=== PATIENT | female | born 1990 | race Caucasian/White ===

== ENCOUNTER 2017-01-03 14:53 | Emergency (ER) | payer OTHER ==
[~2017-01-03] VITALS: Ht 157.5 cm; Wt 52.3 kg
[2017-01-03 15:05] VITALS: BP 112/76; PULSE 82; RESP 16; O2SAT 99
[2017-01-03] MEDS ORDERED: PREN-12 PO (15:08)
[2017-01-03] MEDS ORDERED: NITR100 PO (15:08)
[2017-01-03] MEDS ORDERED: CEPH-512 PO (15:08)
[2017-01-03 16:10] LABS: BASOPHILS % (AUTO) 0.3 % (0-3); EOSINOPHILS % (AUTO) 1.1 % (0-5); MONOCYTES % (AUTO) 10.3 % (4-12); Mean Corpuscular Hemoglobin 30.2 pg (27.0-35.0); Mean Corpuscular Volume 87.9 fL (81-100); NEUTROPHILS % (AUTO) 56.5 % (40-74); Platelet Count 222 bil/L (150-400)
[2017-01-03] MEDS ORDERED: 0.9% Sodium Chloride 1,000 ML IV ONE (18:20)
--- NOTE | 2017-01-03 18:39 | ED.REPORT ---
HPI-Preg Under 20 Weeks Date of Service Jan 03, 2017 ED Provider: Bernard Arriaga MD Pt is a 5 week 2 day 26 y/o female presenting to the ED c/o whitish frothy vaginal discharge and UTI-like symptoms onset 4 days ago. She c/o dysuria , urinary frequency, nausea, continuous vomiting today. She has been taking Azo 3 times a day. She has been on Keflex and Macrobid for 3 days. Macrobid was added to her regimen because her culture was questionable whether it was susceptible to Keflex or not. Pt denies abnormal vaginal bleeding or discharge, fever, chills. She has had Chlamydia at age 18 and her symptoms are somewhat similar to that time. She had unprotected sex early October with a partner who is asymptomatic. She had a stillbirth at 24 weeks and 1 other healthy . Nursing Notes Stated Complaint: UTI Chief Complaint: Female Abdominal Pain Nursing Notes Reviewed: Yes Allergies: Coded Allergies: Estrogens (Verified Allergy, Severe, blood clots, 01/03/17) Scheduled Cephalexin (Keflex) 500 Mg Capsule 500 MG PO QID Metronidazole (Metronidazole) 500 Mg Tablet 500 MG PO BID Nitrofurantoin Monohyd/M-Cryst (MacroBid) 100 Mg Capsule 100 MG PO BID Vit W-Ca,Fe,FA(<1 mg) ( Formula) 1 Each Tablet 1 EACH PO DAILY General Time Seen by Provider: 18:42 Chief Complaint Dysuria Context: : Known 1st trim Hx Obtained From: Patient Arrived By: Walk-in Onset Occurred: 4 days ago Symptom Duration: Since onset Progression Since Onset: Constant Severity: Current: No pain currently Severity: Maximum: No pain Recent Healthcare: Recent doctor visit, Previous diagnosis Similar Sx Previous: Yes Past Medical History Past Medical History Denies Past Surgical History None reported Smoking History Unknown if Ever Smoker Ambulatory Status Independent Review of Systems Constitutional: Denies: Chills, Fever Respiratory: Denies: Non-productive cough, Shortness of breath Cardiovascular: Denies: Chest pain, Dyspnea on exertion GI: Reports: Nausea, Vomiting, Denies: Abdominal pain, Diarrhea Female: Reports: Dysuria, Urinary frequency, Denies: Hematuria, Vaginal bleeding - abnl, Vaginal discharge Complete sys rev & neg: except as marked. Physical Exam Initial Vital Signs Vital Signs (First) Date Time Temp Pulse Resp B/P Pulse Ox O2 Delivery O2 Flow Rate FiO2 3/9/17 15:05 36.6 82 16 112/76 99 Room Air Initial VS: Reviewed, Vital signs normal Head / Eyes: Atraumatic, Normocephalic, PERRL ENT: Mucous membranes moist, Conjunctiva normal, No scleral icterus Neck: Supple, Full range of motion Respiratory: Breath sounds normal, Clear to auscultation, No respiratory distress Cardiovascular: Regular rate & rhythm, Heart sounds normal, Intact distal pulses Extremities: Vascular intact, Neuro intact, No swelling, No tenderness Skin: Warm, Dry, No cyanosis Neurologic: Alert, Oriented, Nonfocal Psychiatric: Mood/affect normal, Behavior normal, Normal thought content General/Constitutional: Awake, Alert, No acute distress, Cooperative, Not toxic appearing Abdomen: Atraumatic, Soft, Non-tender, No guarding, No rebound, No palpable mass Gravid uterus Female Genitourinary: Steel Engraver present (THERESA Clarke), Atraumatic, External genitalia NL, No bleeding, No cervical motion tend, Os closed Copious white-radha vaginal secretions that were thin Interpretation & Diagnostics Lab Results Interpretation Result Diagram: 01/03/17 1602 01/03/17 1602 Test 01/03/17 16:02 01/03/17 18:36 01/03/17 19:27 White Blood Count 6.1th/mm3 (3.8-10.1) Red Blood Count 3.87mil/mm3 (3.90-5.20) Hemoglobin 11.7g/dL (12.0-15.6) Hematocrit 34.0% (35.0-46.0) Mean Corpuscular Volume 87.9fL (81-100) Mean Corpuscular Hemoglobin 30.2pg (27.0-35.0) Mean Corpuscular Hemoglobin Concent 34.4% (32.0-37.0) Red Cell Distribution Width 11.8% (12.3-15.4) Platelet Count 222bil/L (150-400) Neutrophils (%) (Auto) 56.5% (40-74) Lymphocytes (%) (Auto) 31.6% (14-46) Monocytes (%) (Auto) 10.3% (4-12) Eosinophils (%) (Auto) 1.1% (0-5) Basophils (%) (Auto) 0.3% (0-3) Sodium Level 139mEq/L (134-144) Potassium Level 4.0mEq/L (3.5-5.2) Chloride Level 106mEq/L (97-108) Carbon Dioxide Level 20mmol/L (18-29) Blood Urea Nitrogen 10mg/dL (6-20) Creatinine 0.71mg/dL (0.57-1.00) Estimat Glomerular Filtration Rate 143mL/min (>59) Glucose Level 88mg/dL (60-99) Calcium Level 8.9mg/dL (8.5-10.1) Total Bilirubin 0.4mg/dL (0.0-1.2) Aspartate Amino Transf (AST/SGOT) 16U/L (0-50) Alanine Aminotransferase (ALT/SGPT) 12U/L (0-32) Alkaline Phosphatase 31U/L (25-150) Total Protein 7.1g/dL (6.4-8.4) Albumin 4.6g/dL (3.4-5.0) HCG Beta Subunit 5642mIU/mL Hold Brown Top Tube Received (Received) Urine Color [place] (YELLOW) Urine Appearance Hazy (CLEAR,HAZY) Urine pH (5.0-8.0) Urine Specific [place] 1.022 (1.003-1.035) Urine Protein mg/dL (NEG,TRACE) Urine Glucose (UA) mg/dL (NEGATIVE) Urine Ketones mg/dL (NEGATIVE) Urine Occult Blood (NEGATIVE) Urine Nitrite (NEGATIVE) Urine Bilirubin (NEGATIVE) Urine Urobilinogen mg/dL (NORMAL) Urine Leukocyte Esterase (NEGATIVE) Urine RBC 0-2/hpf (0-2) Urine WBC 0-5/hpf (0-5) Urine Epithelial Cells Few/hpf (NONE-MOD) Urine Crystals None seen (NONE SEEN) Urine Bacteria Few/hpf (NONE-FEW) Urine Hyaline Casts None/lpf (NONE) Urine Granular Casts None seen (NONE SEEN) Urine Waxy Casts None seen (NONE SEEN) Urine Red Blood Cell Casts None seen (NONE SEEN) Urine White Blood Cell Casts None seen (NONE SEEN) Urine Mucus Present (None Seen) Urine Trichomonas None seen (NONE SEEN) Urine Yeast None (NONE SEEN) Urinalysis Comment Color interference Urine Culture Reflexed Not indicated Re-Eval/Medical Decision Med Decision/Clinical Course Patient is a 26-year-old female currently approximately 5 weeks presenting to the emergency department complaining of whitish copious vaginal discharge. She has had 2 prior visits in which she was diagnosed with urinary tract infection, initially started on Keflex though later switched to Keflex and Macrobid due to culture and sensitivity. She reports that her UTI symptoms are resolving but that she continues to have copious whitish vaginal discharge. She states that at her previous visits she was not worked up for this and that pelvic examinations were not performed. Here in the emergency department she is afebrile stable vital signs and examination as above. Of note pelvic examination revealed copious whitish frothy discharge. Labs notable as below: CBC: No leukocytosis, stable HCT, unremarkable CMP: Unremarkable Beta HC Wet mount reveals clue cells, no Trichomonas GC and chlamydia pending I was not able to obtain the patient's previous urine cultures however she reports that her UTI symptoms have been resolving and that her current antibiotic regimen is based upon culture and sensitivity results. I see no indication to immediately change the patient's antibiotic regimen. Pelvic examination is clinically consistent with bacterial vaginosis and this is reaffirmed the presence of clue cells. Patient was started on a course of Flagyl. She will follow up with [employer] early next week. Follow-up and return precautions were reviewed in detail and she was discharged in stable condition. She is advised to use Benadryl as needed for nausea and take multivitamin with B6. She is tolerating PO and reports that her nausea and vomiting has been manageable. Re-Evaluation/Progress #1: Time of Eval: 19:28 Re-Evaluation/Progress Note: Confirmed previous urine cultures [facility] in [place], cultures not available, current antibiotics prescribed for sensitivity. Re-Evaluation/Progress #2: Time of Eval: 20:27 Re-Evaluation/Progress Note: Pt rechecked. Informed pt of plan for treatment. Pt understands and agrees with plan for treatment. F/U instructions and RTER warnings given. All questions addressed. Counseled Regarding: Diagnosis, Lab results, Need for follow-up, When/why to return to ED Discharge & Departure Primary Impression: UTI (urinary tract infection) Urinary tract infection type: site unspecified Hematuria presence: without hematuria Qualified Code: N39.0 - Urinary tract infection, site not specified Additional Impressions: Bacterial vaginosis Weeks of gestation: less than 8 weeks Qualified Code: Z3A.01 - Less than 8 weeks gestation of Vaginal discharge Unprotected sexual intercourse Disposition: Home Discharge Condition All VS Reviewed: Yes Condition: Stable Patient Instructions: Bacterial Vaginosis (ED), Urinary Tract Infection in Women (ED) Additional Instructions: Thank you for seeking care at the emergency room. It is difficult for us to make definitive diagnoses in the ED but we believe that you are experiencing symptoms caused by a UTI and bacterial vaginosis. Our primary goal today in the ED was to evaluate you for any life-threatening conditions. Your evaluation was reassuring. You will be discharged with a prescription for Flagyl. Take this as directed. Finish the other antibiotics you were previously prescribed. You should follow-up with your [employer] doctor in the next week. You should return to the ED immediately if you develop increased vaginal bleeding or discharge, fevers, vomiting, cough, shortness of breath, chest pain , lightheadedness, weakness or any other concerning signs or symptoms. Thank you for letting us partake in your care today. Referrals: [facility] (PCP) [facility] Scribe Attestation Portions of this note were transcribed by Satinder Lin. I, Dr. Arriaga personally performed the history, physical exam and medical decision-making; I reviewed and confirmed the accuracy of the information in the transcribed note. Signed by Marquise Nicolas, 01/03/17 - 1899 Bernard Arriaga MD Jan 03, 2017 18:39 SATINDER LIN Jan 03, 2017 18:44
[2017-01-03 18:51] LABS: APPEARANCE,URINE HAZY (CLEAR,HAZY); COLOR,URINE ORANGE (YELLOW)
[2017-01-03] MEDS ORDERED: METR500T19 PO (20:31)
[2017-01-03 20:40] VITALS: BP 107/73; PULSE 93; RESP 16; O2SAT 99
== END 2017-01-03 20:41 | disposition home or self-care (01) ==
LOC: SED 14:53
DX: O23.591 Infection of other part of genital tract in pregnancy, first trimester (principal); O23.41 Unspecified infection of urinary tract in pregnancy, first trimester; Z11.3 Encounter for screening for infections with a predominantly sexual mode of transmission; Z3A.01 Less than 8 weeks gestation of pregnancy; Z88.8 Allergy status to other drugs, medicaments and biological substances

== ENCOUNTER 2017-01-29 20:19 | Emergency (ER) | payer OTHER ==
[~2017-01-29] VITALS: Ht 157.5 cm; Wt 53.6 kg
[~2017-01-29 20:19] MED LIST: CEPH-512 PO; METR500T19 PO; NITR100 PO; PREN-12 PO
[2017-01-29 20:32] VITALS: BP 103/66; PULSE 86; RESP 16; O2SAT 99
[2017-01-29 21:07] LABS: APPEARANCE,URINE CLEAR (CLEAR,HAZY); COLOR,URINE YELLOW (YELLOW)
[2017-01-29 21:08] LABS: OCCULT BLOOD,URINE NEGATIVE (NEGATIVE)
--- NOTE | 2017-01-29 21:36 | ED.REPORT ---
HPI-General Illness Date of Service Jan 29, 2017 ED Provider: Bernard Arriaga MD The patient is a 26 year old female who is currently 9 weeks , presents to the emergency department complaining of urinary tract infection symptoms that began 3 days ago. She has noticed flank pain, nausea, abdominal pain, dysuria, and increased urinary urgency and frequency. Her symptoms are worse today. Her current symptoms are similar to when she had a UTI. She is normally treated with Macrobid. Nursing Notes Stated Complaint: UTI, NAUSEA, BACK PAIN, ABDOMINAL PAIN Chief Complaint: Female Abdominal Pain Nursing Notes Reviewed: Yes Allergies: Coded Allergies: Estrogens (Verified Allergy, Severe, blood clots, 01/03/17) Scheduled Cephalexin (Keflex) 500 Mg Capsule 500 MG PO QID Metronidazole (Metronidazole) 500 Mg Tablet 500 MG PO BID Nitrofurantoin Monohyd/M-Cryst (MacroBid) 100 Mg Capsule 100 MG PO BID Nitrofurantoin Monohyd/M-Cryst (MacroBid) 100 Mg Capsule 100 MG PO BID Vit W-Ca,Fe,FA(<1 mg) ( Formula) 1 Each Tablet 1 EACH PO DAILY General Time Seen by MD: 21:28 Chief Complaint Urinary burring Hx Obtained From: Patient Arrived By: Walk-in Sudden in Onset?: No Onset Occurred: 3 days ago Symptom Duration: Since onset Location: : Abdomen: Back Quality: Painful Severity: Current: Mild Severity: Maximum: Mild Recent Healthcare: No recent hospitalization, Recent doctor visit Similar Sx Previous: Yes Past Medical History Past Medical History , with history of 1 still born Past Surgical History None reported Family History Noncontributory Smoking History Unknown if Ever Smoker Social History Other Social History: Good social support, Local resident Ambulatory Status Independent Review of Systems Full Review of Systems GI: Reports: Abdominal pain Female: Reports: Dysuria, Flank pain, , Urinary frequency, Urinary urgency Complete sys rev & neg: except as marked. Physical Exam Vital Signs Vital Signs Date Time Temp Pulse Resp B/P Pulse Ox O2 Delivery O2 Flow Rate FiO2 01/29/17 20:32 36.6 86 16 103/66 99 Room Air Initial VS: Reviewed Head / Eyes: Atraumatic, Normocephalic, PERRL ENT: Mucous membranes moist, Conjunctiva normal, No scleral icterus Neck: Supple, Non-tender, Full range of motion Respiratory: Breath sounds normal, Clear to auscultation, No respiratory distress Cardiovascular: Regular rate & rhythm, Heart sounds normal, Intact distal pulses Abdomen / GI: Soft, Non-tender, No guarding, No rebound, No distention Back: No CVA tenderness Lymphatic: No lymphadenopathy Extremities: Vascular intact, Neuro intact, No swelling, No tenderness Skin: Warm, Dry, No cyanosis Neurologic: Alert, Oriented, Nonfocal Psychiatric: Mood/affect normal, Behavior normal, Normal thought content General/Constitutional: Awake, Alert, Well appearing Interpretation & Diagnostics Lab Results Interpretation Test 01/29/17 20:49 Urine Color Yellow (YELLOW) Urine Appearance Clear (CLEAR,HAZY) Urine pH 6.0 (5.0-8.0) Urine Specific [place] 1.030 (1.003-1.035) Urine Protein Negativemg/dL (NEG,TRACE) Urine Glucose (UA) Negativemg/dL (NEGATIVE) Urine Ketones Negativemg/dL (NEGATIVE) Urine Occult Blood Negative (NEGATIVE) Urine Nitrite Positive (NEGATIVE) Urine Bilirubin Negative (NEGATIVE) Urine Urobilinogen 1.0mg/dL (NORMAL) Urine Leukocyte Esterase Negative (NEGATIVE) Urine RBC 0-2/hpf (0-2) Urine WBC 0-5/hpf (0-5) Urine Epithelial Cells None/hpf (NONE-MOD) Urine Crystals None seen (NONE SEEN) Urine Bacteria Few/hpf (NONE-FEW) Urine Hyaline Casts None/lpf (NONE) Urine Granular Casts None seen (NONE SEEN) Urine Waxy Casts None seen (NONE SEEN) Urine Red Blood Cell Casts None seen (NONE SEEN) Urine White Blood Cell Casts None seen (NONE SEEN) Urine Mucus None seen (None Seen) Urine Trichomonas None seen (NONE SEEN) Urine Yeast None (NONE SEEN) Urinalysis Comment None Urine Culture Reflexed Indicated Re-Eval/Medical Decision Med Decision/Clinical Course The patient is a 26 year old female who is currently 9 weeks , presents to the emergency department complaining of urinary tract infection symptoms that began 3 days ago. She has noticed flank pain, nausea, abdominal pain, dysuria, and increased urinary urgency and frequency. Her symptoms are worse today. Her current symptoms are similar to when she had a UTI. UA: neg leukesterase, few bacteria, positive nitrites, 0-5 WBCs, sent for culture No urine culture results in records. She reports that she was most recently treated with Macrobid and had complete resolution of her symptoms. Abdominal examination completely benign. Nontoxic in appearance. No abnormal vaginal discharge or bleeding. No flank pain/tenderness or signs of systemic illness. Urine sent for culture and 7d course of Macrobid prescribed. Follow precautions were reviewed in detail and she was discharged in good condition. Source of Hx: Old records Time of Eval: 22:43 Re-Evaluation/Progress Note: Discussed results, diagnosis, and plan for discharge. All questions were addressed. Counseled Regarding: Diagnosis, Lab results, Need for follow-up, When/why to return to ED Discharge & Departure Primary Impression: UTI (urinary tract infection) Urinary tract infection type: site unspecified Hematuria presence: without hematuria Qualified Code: N39.0 - Urinary tract infection, site not specified Additional Impressions: Weeks of gestation: 9 weeks Qualified Code: Z3A.09 - 9 weeks gestation of Dysuria Urinary frequency History of recurrent UTIs Disposition: Home Discharge Condition All VS Reviewed: Yes Condition: Stable Patient Instructions: Urinary Tract Infection in Women (ED) Additional Instructions: Thank you for seeking care at the emergency room. It is difficult for us to make definitive diagnoses in the ED but we believe that you are experiencing symptoms related to a urinary tract infection. Our primary goal today in the ED was to evaluate you for any life-threatening conditions. Your evaluation was reassuring. You will be discharged with a prescription for Macrobid. Make sure to drink plenty of fluids. You should follow-up with your primary doctor in the next week. You should return to the ED immediately if you develop fevers, vomiting, increased pain, or any other concerning signs or symptoms. Thank you for letting us partake in your care today. Referrals: [facility] Scribe Attestation Portions of this note were transcribed by Cathy Mitchell. I, Dr. Arriaga personally performed the history, physical exam and medical decision-making; I reviewed and confirmed the accuracy of the information in the transcribed note. Signed by: Marquise Stafford, 01/29/2017 at 2250. Bernard Arriaga MD Jan 29, 2017 21:36 Cathy Mitchell Jan 29, 2017 21:41
[2017-01-29] MEDS ORDERED: NITR100 PO (22:38)
[2017-01-29] MEDS ORDERED: Nitrofurantoin Monohyd-Macrocryst 100 mg Capsule PO ONE (22:45)
== END 2017-01-29 22:48 | disposition home or self-care (01) ==
LOC: SED 20:19
DX: O23.41 Unspecified infection of urinary tract in pregnancy, first trimester (principal); Z3A.09 9 weeks gestation of pregnancy; Z88.8 Allergy status to other drugs, medicaments and biological substances

== ENCOUNTER 2017-02-27 17:03 | Emergency (ER) | payer OTHER ==
[~2017-02-27] VITALS: Ht 157.5 cm; Wt 55.5 kg
[2017-02-27 17:06] VITALS: BP 127/67; PULSE 83; RESP 16; O2SAT 99
--- NOTE | 2017-02-27 18:21 | ED.REPORT ---
HPI-Stroke / CVA February 27, 2017 ED Provider: Darryl Farfan MD A 26 year old female at 13 weeks with a history of antithrombin deficiency presents to the ED with left leg and left arm numbness onset 2100 last night. The numbness spreads from her left elbow to her fingertips and from her left knee to her toes. The numbness came on gradually, preventing the patient from sleeping for some time. When the patient woke up this morning, her numbness had resolved but it subsequently returned while she was lying in bed. The patient denies weakness, aphasia, headache, or other symptoms. She has never had similar symptoms in the past. Nursing Notes Stated Complaint: LEFT EXTREMITIES NUMBNESS Chief Complaint: Extremity Trauma Nursing Notes Reviewed: Yes (Neitui not reconciled) Allergies: Coded Allergies: Estrogens (Verified Allergy, Severe, blood clots, 02/27/17) Scheduled Cephalexin (Keflex) 500 Mg Capsule 500 MG PO QID (Reported) Metronidazole (Metronidazole) 500 Mg Tablet 500 MG PO BID Nitrofurantoin Monohyd/M-Cryst (MacroBid) 100 Mg Capsule 100 MG PO BID (Reported ) Nitrofurantoin Monohyd/M-Cryst (MacroBid) 100 Mg Capsule 100 MG PO BID Vit W-Ca,Fe,FA(<1 mg) ( Formula) 1 Each Tablet 1 EACH PO DAILY (Reported) General Time Seen by Provider: 18:21 Chief Complaint Numbness Arm left, Leg left Hx Obtained From: Patient Arrived By: Walk-in Time last known well Symptoms began around 2100 last night Sudden in Onset?: No Symptom Duration: Intermittent Progression Since Onset: Unchanged Severity: Current: No pain currently Severity: Maximum: No pain Pertinent Negative: Relieved by nothing Context: Immunizations Unknown Recent Healthcare: No recent doctor visit Similar Sx Previous: No Risk Factors NIH Stroke Scale Level of Consciousness: Alert and responsive (0) Ask Month & Age: Both questions right (0) Open/Close Eyes/Hand Registration Officer: Performs both tasks (0) Horizontal EO Movements: None (0) Visual Allen: No visual loss (0) Facial Palsy: Normal symmetry (0) Right Arm Motor Drift (10s): No drift 10 sec (0) Left Arm Motor Drift (10s): No drift 10 sec (0) Right Leg Motor Drift (5s): No drift 5 sec (0) Left Leg Motor Drift (5s): No drift 5 sec (0) Limb Ataxia FNF/Heel-Doe: No ataxia (0) Sensation (Arms/Legs/Face): Pinprick less sharp (1) Language Aphasia: No aphasia, normal (0) Dysarthria: No dysarthria, normal (0) Extinction/Inattention: No exctinct/inattent (0) NIHSS Score: 1 Time NIHSS Performed: 18:26 Date NIHSS Performed: February 27, 2017 Past Medical History Past Medical History , with history of 1 still born Antithrombin deficiency Past Surgical History None reported Family History Noncontributory Smoking History Unknown if Ever Smoker Social History Other Social History: Good social support, Local resident Ambulatory Status Independent Review of Systems Review of Systems Note: - Aphasia Constitutional: Denies: Fever Respiratory: Denies: Non-productive cough, Shortness of breath GI: Denies: Diarrhea, Vomiting Neurologic: Reports: Numbness (Left arm, left leg), Denies: Headache, Weakness Psychiatric: Reports: Insomnia Complete sys rev & neg: except as marked. Physical Exam Initial Vital Signs Vital Signs (First) Date Time Temp Pulse Resp B/P Pulse Ox O2 Delivery O2 Flow Rate FiO2 02/27/17 17:06 36.6 83 16 127/67 99 Room Air Initial VS: Reviewed, Vital signs normal Skin: Warm, Dry Psychiatric: Mood/affect normal, Behavior normal, Normal thought content General/Constitutional: Awake, Alert, No acute distress Head / Eyes: Atraumatic, Normocephalic, EOMI Neck: Supple, Full range of motion Respiratory / Chest: Breath sounds NL, Breath sounds = bilat, No respiratory distress Cardiovascular: Heart rate NL, Regular rhythm, Heart sounds NL Neurologic: Oriented X3, Speech NL, No motor deficits Focal Weakness: Negative: Pronator drift L, Pronator drift R Sensory Deficit: Positive: Lower extremity L, Upper extremity L Cerebellar Dysfunction: Negative: Finger-nose abnl Interpretation & Diagnostics BRAIN MRI W/O CONTRAST: IMPRESSION: Normal for age, source of current symptoms is not seen. Dictated by: August Ro M.D. on 02/27/2017 at 20:30 Lab Results Interpretation Result Diagram: 02/27/17 1756 02/27/17 1756 Test 02/27/17 17:56 White Blood Count 5.8th/mm3 (3.8-10.1) Red Blood Count 3.86mil/mm3 (3.90-5.20) Hemoglobin 11.9g/dL (12.0-15.6) Hematocrit 33.7% (35.0-46.0) Mean Corpuscular Volume 87.3fL (81-100) Mean Corpuscular Hemoglobin 30.8pg (27.0-35.0) Mean Corpuscular Hemoglobin Concent 35.3% (32.0-37.0) Red Cell Distribution Width 12.6% (12.3-15.4) Platelet Count 191bil/L (150-400) Neutrophils (%) (Auto) 61.0% (40-74) Lymphocytes (%) (Auto) 27.4% (14-46) Monocytes (%) (Auto) 9.3% (4-12) Eosinophils (%) (Auto) 1.9% (0-5) Basophils (%) (Auto) 0.2% (0-3) Hold Purple Top Tube Received (Received) Hold Blue Top Tube Received (Received) Sodium Level 135mEq/L (134-144) Potassium Level 3.3mEq/L (3.5-5.2) Chloride Level 99mEq/L (97-108) Carbon Dioxide Level 20mmol/L (18-29) Blood Urea Nitrogen 10mg/dL (6-20) Creatinine 0.50mg/dL (0.57-1.00) Estimat Glomerular Filtration Rate 214mL/min (>59) Glucose Level 83mg/dL (60-99) Calcium Level 9.3mg/dL (8.5-10.1) Total Bilirubin 0.4mg/dL (0.0-1.2) Aspartate Amino Transf (AST/SGOT) 18U/L (0-50) Alanine Aminotransferase (ALT/SGPT) 12U/L (0-32) Alkaline Phosphatase 28U/L (25-150) Total Protein 7.3g/dL (6.4-8.4) Albumin 4.2g/dL (3.4-5.0) Hold [place] Top Tube Received (Received) Lab Results Interpretation: CBC normal CMP normal Re-Eval/Medical Decision Med Decision/Clinical Course This is a 26-year-old female who is on aspirin 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 She has no weakness, and no other neurologic symptoms. However she became concerned, and appropriately came to the emergency department. On exam, she is not an issue scale 1, with report of decreased sensation to sharp illness on the left side for the arm and leg, as well as sensation is still intact. No other deficits are evident. She is not a candidate for tPA for multitude of reasons. The rest of her exam is normal. At this point, the patient is enough risk factors with and a hyper coagulative disorder, with mild neurologic symptoms. An MRI was obtained and was negative for CVA or severe pathology. S1 and not finding a dangerous etiology. Reassurance provided. The patient is advised to follow up with her provider and is discharged in good condition or couple with this. Return precautions reviewed. Source of Hx: Old records Re-Evaluation/Progress : Time of Eval: 20:46 )( Re-Eval Neurologic Exam: Alert Patient Status: Condition improved Re-Evaluation/Progress Note: Discussed with patient lab and MRI results, diagnosis, and plan for discharge. Follow-up and return to the ER instructions given. Patient agrees with plan for care and all questions were addressed. Differential Diagnosis: Negative: Atrial fibrillation, Atypical migraine, Cerebellar hemorrhage, Cerebrovascular accident, Delirium tremens, Electrolyte disorder, Epidural hemorrhage, Hyperglycemia, Hypoglycemia, Intoxication, alcohol, Intraparench hemorrhage, Mass lesion, Mult Scleros exacerbation, Seizure disorder, Subarachnoid hemorrhage, Subdural hemorrhage, Substance abuse disorder, Arthur's paralysis Counseled Regarding: Diagnosis, Lab results, Need for follow-up, When/why to return to ED Patient Discharge & Departure Impression: Primary Impression: Transient neurological symptoms Additional Impression: Weeks of gestation: 13 weeks Qualified Code: Z3A.13 - 13 weeks gestation of Disposition: Home Discharge Condition All VS Reviewed: Yes Condition: Improved Additional Instructions: 1. Your tests in the emergency department were normal. Your MRI of the brain was normal-there were no findings of a stroke, which will be the main concern with her symptoms. A dangerous cause of the numbness was not identified. 2. Symptoms are expected to improve and resolve with time. 3. Activities as tolerated. 4. Continue your aspririn daily. 5. Keep the appointment with your RESTAURANT KITCHEN MANAGER provider for follow up. 6. Return if new or worsening symptoms. Referrals: NOPCP (PCP) Scribe Attestation Portions of this note were transcribed by Annie Bangura. I, Dr. Farfan, personally performed the history, physical exam, and medical decision-making; I reviewed and confirmed the accuracy of the information in the transcribed note. Signed by: Marquise Vaughan, 02/27/2017, 22:15 Darryl Farfan MD February 27, 2017 18:20 ANNIE BANGURA February 27, 2017 18:27
[2017-02-27 18:57] LABS: BASOPHILS % (AUTO) 0.2 % (0-3); EOSINOPHILS % (AUTO) 1.9 % (0-5); MONOCYTES % (AUTO) 9.3 % (4-12); Mean Corpuscular Hemoglobin 30.8 pg (27.0-35.0); Mean Corpuscular Volume 87.3 fL (81-100); Platelet Count 191 bil/L (150-400)
--- NOTE | 2017-02-27 20:33 | DRSVH ---
PROCEDURE: MRI BRAIN WITHOUT CONTRAST ([id number]) INDICATIONS: L arm L leg numbness TECHNIQUE: Noncontrast axial T1 spin echo, axial T2 fast spin echo, sagittal and axial FLAIR, coronal T2 fast sp in echo, axial gradient echo, axial diffusion and ADC through the brain. COMPARISON: None. FINDINGS: Image quality: Excellent. CSF Spaces: Basal cisterns are patent. No extra-axial fluid collections. Ventricles are normal in size and shape. Brain: No intracranial masses or hemorrhage. Conn/white matter interface is normal. Brainstem appe ars normal. Diffusion-weighted images demonstrate no acute ischemic insult. No chronic ischemic ins ults. Normal intravascular flow voids are present. Skull and face: Calvarium has normal marrow signal. Orbits appear normal. Sinuses: Sinuses and mastoids are clear. IMPRESSION: Normal for age, source of current symptoms is not seen. Dictated by: August Ro M.D. on 02/27/2017 at 20:30 Approved by: August Ro M.D. on 02/27/2017 at 20:31
[2017-02-27 21:00] VITALS: BP 102/57; PULSE 76; RESP 15; O2SAT 100
== END 2017-02-27 20:57 | disposition home or self-care (01) ==
LOC: SED 17:03
DX: O26.891 Other specified pregnancy related conditions, first trimester (principal); R20.0 Anesthesia of skin; Z3A.13 13 weeks gestation of pregnancy; Z79.82 Long term (current) use of aspirin; Z88.8 Allergy status to other drugs, medicaments and biological substances
CPT/HCPCS: 36415; 70551; 80053; 85025; 96374; 99285; J2060